=== PATIENT | male | born 2000 | race Caucasian/White ===

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

== ENCOUNTER → 2020-03-30 | Outpatient (CLI) | payer OTHER, SELFPAY ==
[2020-03-30 16:35] VITALS: BMI 23.3
--- NOTE | 2020-03-30 16:39 | RAD_ITS ---
STUDY: X-RAY - RIGHT FOOT CLINICAL: Male, 19 years old. Injury. Pain and swelling. TECHNIQUE: 3 view(s) of the foot. COMPARISON: None. FINDINGS: There is no evidence of fracture or dislocation. There are no significant degenerative changes. There are no radiodense foreign bodies. RAD/Foot min 3 Views IMPRESSION: No fracture or dislocation. Electronically Signed: Regan Oleary, at 17:58 EDT Tel , Service support ,
--- NOTE | 2020-03-30 16:39 | RAD_ITS ---
STUDY: X-RAY - RIGHT ANKLE REASON FOR EXAM: Male, 19 years old. Injury. Pain and swelling. TECHNIQUE: 3 view(s) of the ankle. COMPARISON: None. FINDINGS: There is no evidence of fracture or dislocation. There are no significant degenerative changes. There are no radiodense foreign bodies. RAD/Ankle min 3 Views IMPRESSION: No fracture or dislocation. Electronically Signed: Regan Oleary, at 17:59 EDT Tel , Service support ,
== END | disposition home or self-care (01) ==
PROVIDERS: PCP Nurse Practitioner Primary Care; Referring Provider Physician Assistant Surgical; Visit Provider Physician Assistant Surgical
DX: S96.911A Strain of unspecified muscle and tendon at ankle and foot level, right foot, initial encounter (principal)
CPT/HCPCS: 73610; 73630